=== PATIENT | female | born 1940 | race Asian ===

== ENCOUNTER 2016-10-10 17:06 | Emergency (ER) | payer MEDICARE, OTHER ==
[~2016-10-10] VITALS: Ht 157.5 cm; Wt 50.0 kg
[2016-10-10 17:14] VITALS: Ht 157.5 cm; Wt 50.0 kg
[2016-10-10] MEDS ORDERED: ACETAMINOPHEN 500 MG TAB PO STA (21:08)
[2016-10-10] MEDS ORDERED: SOD CHLORIDE 0.9% 500 ML IV STA (21:08)
--- NOTE | 2016-10-10 21:42 | RADRPT ---
PROCEDURE: CT Brain without contrast. CLINICAL INDICATION: Syncope. TECHNIQUE: A CT of the brain was performed on a high-resolution CT scanner utilizing a low dose te chnique with axial imaging from the skull base through the vertex without IV contrast. Multiplanar reformatted images were made. Images were reviewed on a PACS workstation. The CTDIvol is 45 mGy an d the DLP is 720 mGycm. One or more of the following dose reduction techniques were used: - Automated exposure control. - Adjustment of the mA and/or kV according to patient size. Use of iterative reconstruction technique. COMPARISON: CT scan of the brain 06/11/2007. FINDINGS: There are vascular calcifications in the cavernous and supracavernous portions of the internal carot id arteries. There is encephalomalacia of the dorsal right frontal lobe and left temporal lobe. The re is a metal clip adjacent to the anterior clinoid process from prior aneurysm clipping. There are old lacunar infarcts involving the left extreme capsule and dorsal lateral aspect of the left lenti form nucleus. No acute intracranial hemorrhage or bleed is identified. There are chronic small ves jacklyn ischemic changes in the periventricular white matter tracts adjacent to the frontal horns of the lateral ventricles. There are calcifications in the coronary plexus. The globes and extraocular muscles are normal. A left frontal craniotomy was performed. IMPRESSION: 1. Status post left frontal craniotomy with encephalomalacia involving portions of the left frontal and temporal lobes. 2. Stable old lacunar infarcts involving the left extreme capsule and lateral aspect of the left le ntiform nucleus. 3. Status post placement of a aneurysm clip adjacent to the left anterior clinoid. 4. No acute process is identified. 5. There are vascular calcifications in the cavernous and supracavernous portions of the internal ca rotid arteries. RPTAT:AAJJ Physician Chetan Date Time Electronically viewed and signed by Physician Chetan on 10/10/2016 21:42 PANDA/
[2016-10-10] MEDS ORDERED: HYDR12.58 PO (22:15)
[2016-10-10] MEDS ORDERED: VENL75TA PO (22:16)
[2016-10-10] MEDS ORDERED: LORA0.5T PO (22:17)
[2016-10-10] MEDS ORDERED: ATOR10TA65 PO (22:18)
[2016-10-10] MEDS ORDERED: ARIP5TAB7 PO (22:18)
[2016-10-10] MEDS ORDERED: VALS80TA2 PO (22:18)
[2016-10-10] MEDS ORDERED: AMLO5TAB4 PO (22:19)
[2016-10-10 22:20] LABS: ADD SCAN DIFF NO
--- NOTE | 2016-10-10 22:20 | RADRPT ---
PROCEDURE: Portable chest x-ray. CLINICAL INDICATION: Syncope. TECHNIQUE: Portable AP view of the chest. COMPARISON: 06/11/2007. FINDINGS: No pulmonary edema or conolidation is identified. The cardiac silhouette is magnified. There are ao rtic calcifications. No pleural effusion is seen. There is no pneumothorax. IMPRESSION: 1. No evidence of acute cardiopulmonary disease. 2. Aortic atherosclerosis. RPTAT: HTAR .Dong Chan MD, MD Date Time Electronically viewed and signed by .Dong Chan MD, on 10/10/2016 22:20 .R/
[2016-10-10 22:21] LABS: BASOPHILS % 0.5 % (0.0-2.0); EOSINOPHILS # 0.1 10^3/ul (0.0-0.5); EOSINOPHILS % 3.1 % (0.0-7.0); HEMATOCRIT 36.8 % (37.0-47.0); HEMOGLOBIN 12.1 g/dl (12.0-16.0); LYMPHOCYTES # 1.4 10^3/ul (0.8-2.9); LYMPHOCYTES % 34.4 % (15.0-51.0); MEAN CORPUSCULAR HEMOGLOBIN 29.9 pg (29.0-33.0); MEAN CORPUSCULAR HGB CONC 32.9 g/dl (32.0-37.0); MEAN CORPUSCULAR VOLUME 90.9 fl (82.0-101.0); MEAN PLATELET VOLUME 9.3 fl (7.4-10.4); MONOCYTE # 0.6 10^3/ul (0.3-0.9); NEUTROPHILS % 46.8 % (39.0-77.0); PLATELET COUNT 194 10^3/UL (140-415); RED BLOOD COUNT 4.05 10^6/ul (4.20-5.40); RED CELL DISTRIBUTION WIDTH 12.6 % (11.5-14.5); WHITE BLOOD COUNT 4.2 10^3/ul (4.8-10.8)
[2016-10-10 22:32] LABS: INR 0.94; PROTIME 12.6 Sec (12.2-14.2)
[2016-10-10 22:33] LABS: PARTIAL THROMBOPLASTIN TIME 26.7 Sec (25.0-35.0)
[2016-10-10 22:34] LABS: ANION GAP 10 (8-16); BLOOD UREA NITROGEN 22 mg/dl (7-20); CALCIUM 9.1 mg/dl (8.4-10.2); CARBON DIOXIDE 31 mmol/L (21-31); CHLORIDE 98 mmol/L (97-110); CREATININE 0.83 mg/dl (0.44-1.00); GLUCOSE 113 mg/dl (70-220); POTASSIUM 3.7 mmol/L (3.5-5.1); SODIUM 135 mmol/L (135-144)
[2016-10-10 22:42] VITALS: BP 114/77; PULSE 71; RESP 20; TEMP 98.1
--- NOTE | 2016-10-10 22:44 | ERD ---
ER Documentation Chief Complaint Date/Time DATE: 10/10/16 TIME: 22:37 Chief Complaint Per daughter patient fell, there is a bump on her but patient is unaware HPI 76-year-old female history of mild dementia, prior history of odonnell aneurysm hemorrhage status post craniotomy and depression. The patient presents because of left occipital hematoma. It appears that the patient lives at home, she took a sleep aid medication and woke up in her bed but noted to have a hematoma to the left occipital region. She is not sure how this happened. She did note that her shoes were not in the place where they usually are. The family reports no recent falls, no recent syncopal episodes. The patient denies any neck pain, no chest pain or shortness of breath. The patient is at her usual mental status per family. No anticoagulants reported. ROS All systems reviewed and are negative except as per history of present illness. Medications Home Meds Reported Medications Amlodipine Besylate* (Norvasc*) 5 Mg Tablet, 5 MG PO DAILY, TAB 10/10/16 Valsartan* (Diovan*) 80 Mg Tablet, 80 MG PO DAILY, TAB 10/10/16 Atorvastatin Calcium (Atorvastatin Calcium) 10 Mg Tablet, 10 MG PO QHS, #30 TAB 10/10/16 Aripiprazole* (Abilify*) 5 Mg Tab, 5 MG PO QHS, #30 TAB 10/10/16 Lorazepam* (Lorazepam*) 0.5 Mg Tablet, 0.25 MG PO HS for ANXIETY, TAB 10/10/16 Venlafaxine Hcl* (Venlafaxine Hcl*) 75 Mg Tablet, 75 MG PO QAM, TAB 10/10/16 Hydrochlorothiazide* (Hydrochlorothiazide*) 12.5 Mg Tablet, 12.5 MG PO QAM, #30 TAB 10/10/16 Allergies Allergies: Coded Allergies: No Known Allergy (Verified , 10/10/16) FmHx Family History: No diabetes Physical Exam Vitals Vital Signs Date Time Temp Pulse Resp B/P Pulse Ox O2 Delivery O2 Flow Rate FiO2 10/10/16 22:42 98.1 71 20 114/77 99 Room Air 10/10/16 17:14 98.3 104 20 103/64 97 Physical Exam General: Well developed, well nourished, no acute distress Head: Prior left-sided craniotomy, left occipital hematoma that is approximately 1 cm without abrasion or laceration Eyes: Pupils equally reactive, EOM intact ENT: Moist mucous membranes Neck: Supple, no lymphadenopathy, No midline tenderness, deformities, step-offs to the cervical spine, full active and passive range of motion without midline pain. Respiratory: Lungs clear bilaterally, no distress Cardiovascular: RRR, no murmurs, rubs, or gallops Abdominal: Soft, non-tender, non-distended, no peritoneal signs : Deferred MSK: No edema, no unilateral swelling, 5/5 strength Neurologic: Alert and oriented, moving all extremities, normal speech, no focal weakness, no cerebellar signs Skin: No rash Psych: Normal mood Result Diagram: 10/10/16214810/10/162148 Results 24 hrs Laboratory Tests Test 10/10/16 21:49 White Blood Count 4.210^3/ul Red Blood Count 4.0510^6/ul Hemoglobin 12.1g/dl Hematocrit 36.8% Mean Corpuscular Volume 90.9fl Mean Corpuscular Hemoglobin 29.9pg Mean Corpuscular Hemoglobin Concent 32.9g/dl Red Cell Distribution Width 12.6% Platelet Count 26091^3/UL Mean Platelet Volume 9.3fl Neutrophils % 46.8% Lymphocytes % 34.4% Monocytes % 15.0% Eosinophils % 3.1% Basophils % 0.5% Nucleated Red Blood Cells % 0.0/100WBC Neutrophils # 2.010^3/ul Lymphocytes # 1.410^3/ul Monocytes # 0.610^3/ul Eosinophils # 0.110^3/ul Basophils # 0.010^3/ul Nucleated Red Blood Cells # 0.010^3/ul Prothrombin Time 12.6Sec Prothrombin Time Ratio 1.0 INR International Normalized Ratio 0.94 Activated Partial Thromboplast Time 26.7Sec Sodium Level 135mmol/L Potassium Level 3.7mmol/L Chloride Level 98mmol/L Carbon Dioxide Level 31mmol/L Anion Gap 10 Blood Urea Nitrogen 22mg/dl Creatinine 0.83mg/dl Glucose Level 113mg/dl Calcium Level 9.1mg/dl Troponin I < 0.012ng/ml Current Medications Medications (Trade) Dose Ordered Sig/Jannette Route PRN Reason Start Time Stop Time Status Last Admin Dose Admin Sodium Chloride (NS) 500 ml @ 500 mls/hr Q1H STAT IV 10/10/16 21:08 10/10/16 22:07 DC 10/10/16 21:58 Acetaminophen (Tylenol Tab) 1,000 mg ONCE STAT PO 10/10/16 21:08 10/10/16 21:10 DC 10/10/16 21:55 Procedures/MDM EKG, MONITORS, & DIAGNOSTIC IMAGING: EKG: I reviewed and interpreted a 12-lead EKG. Rhythm: Normal sinus rhythm Ectopy: None Intervals: No abnormalities ST segments: No elevations or depressions T waves: No contiguous inversions CT brain: IMPRESSION: 1. Status post left frontal craniotomy with encephalomalacia involving portions of the left frontal and temporal lobes. 2. Stable old lacunar infarcts involving the left extreme capsule and lateral aspect of the left lentiform nucleus. 3. Status post placement of a aneurysm clip adjacent to the left anterior clinoid. 4. No acute process is identified. 5. There are vascular calcifications in the cavernous and supracavernous portions of the internal carotid arteries. RPTAT:AAJJ Chest x-ray: I reviewed and interpreted a 1 view of the chest Mediastinum: No enlargement Cardiac silhouette: No cardiomegaly Airspace: Clear lung gray bilaterally without evidence of pneumothorax Bones: No evidence of fracture LAB INTERPRETATION: No leukocytosis, negative troponin MEDICAL DECISION MAKING: The patient's presentation is consistent with occipital hematoma likely secondary to fall secondary to use of sleep aid overnight. However cannot rule out syncope. This appears to be less likely given that the patient woke up in her bed and is otherwise well-appearing. I have a very low suspicion of alternative etiology such as arrhythmia, ACS or infection. However, given the patient's age it would be reasonable for basic blood work, EKG. The patient does not meet high-risk criteria and based on NEXUS cervical spine criteria there is no indication for cervical spine imaging at this time. ER COURSE: CT brain is unchanged. The patient has no headache and no sudden onset of headache to suggest subarachnoid hemorrhage. Laboratory testing and diagnostic imaging is otherwise negative. Patient given Tylenol. She is safe for discharge home. I kept the patient and/or family informed of laboratory and diagnostic imaging results throughout the emergency room course. DISPOSITION PLAN: We discussed follow up with the patient's primary care doctor within 24 to 48 hours as needed. We also discussed return to the emergency room for worsening symptoms or worsening condition. Outpatient referral: [None required] Discharge Medications: Tylenol Departure Diagnosis: Primary Impression: Hematoma of occipital surface of head Encounter type: initial encounter Qualified Code: S00.83XA - Hematoma of occipital surface of head, initial encounter Condition: Stable JUANCHO ZALDIVAR MD October 10, 2016 22:44
[2016-10-10 22:48] LABS: TROPONIN-I < 0.012 ng/ml (0.00-0.12)
== END 2016-10-10 23:24 | disposition home or self-care (01) ==
LOC: E/R 17:06
DX: S00.83XA Contusion of other part of head, initial encounter (principal); R55 Syncope and collapse; W18.00XA Striking against unspecified object with subsequent fall, initial encounter; Y92.9 Unspecified place or not applicable
CPT/HCPCS: 36415; 70450; 71010; 80048; 84484; 85025; 85610; 85730; 93005; 99285; J7040

== ENCOUNTER 2016-11-29 06:59 | Day surgery (SDC) | payer MEDICARE, OTHER ==
--- NOTE | 2016-11-28 13:02 | PREOPHP ---
DATE OF ADMISSION: 11/29/2016 HISTORY OF PRESENT ILLNESS: This 76-year-old patient is admitted for elective cataract surgery of t he right eye. The patient has had decreased vision in both eyes for a number of years, which has be en progressive in nature. 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 The patient also has a history of systemic hypertension, depression and anxiety. CURRENT MEDICATIONS INCLUDE: 1. BuSpar 2. Lipitor. 3. Omeprazole. 4. Hydrochlorothiazide. 5. Diovan. 6. Abilify. ALLERGIES: THERE ARE NO KNOWN ALLERGIES. PHYSICAL EXAMINATION: Visual acuity best corrected is 20/100 in the right eye and 20/70 in the left eye. Slit lamp examination reveals advanced nuclear sclerotic cataract present in both eyes with v acuolar changes. Applanation tonometry is 15 mmHg. Examination of the retina is within normal limi ts. DIAGNOSIS: Cataract, right eye. PLAN: Cataract extraction with lens implant, right eye. The risks and alternatives to the surgery have been discussed with the patient and the patient has opted to proceed with surgery. Dictated By: SHANTELL LUO/KENYETTA Conf#: [id number] DID#: [id number]
[~2016-11-29] VITALS: Ht 157.5 cm; Wt 49.4 kg
[2016-11-29] VITALS (7 sets, daily range): BP systolic 98–125; BP diastolic 69–85; PULSE 66–106; RESP 18–25; Ht 157.5 cm; Wt 49.4 kg
[~2016-11-29 06:59] MED LIST: AMLO5TAB4 PO; ARIP5TAB7 PO; ATOR10TA65 PO; HYDR12.58 PO; LORA0.5T PO; VALS80TA2 PO; VENL75TA PO
[2016-11-29] MEDS ORDERED: CYCLOPENTOLATE/PHENYLEPH 2 ML OPH OPER SCH (07:00)
[2016-11-29] MEDS ORDERED: DICLOFENAC 0.1% 2.5 ML OPH OPER SCH (07:00)
[2016-11-29] MEDS ORDERED: CIPROFLOXACIN 0.3% 2.5 ML OPH OPER SCH (07:00)
[2016-11-29] MEDS ORDERED: TROPICAMIDE 1% 2 ML OPH OPER SCH (07:00)
[2016-11-29] MEDS ORDERED: NITR-58 PO (07:52)
[2016-11-29] MEDS ORDERED: ARIP10TA13 PO (07:54)
[2016-11-29] MEDS ORDERED: EPINEPHrine 1 MG INJ ONE (09:08)
[2016-11-29] MEDS ORDERED: LIDOCAINE 4% (MPF) 5 ML INJ ONE (09:08)
[2016-11-29] MEDS ORDERED: CARBACHOL 0.01% 1.5 ML OPH INJ ONE (09:08)
[2016-11-29] MEDS ORDERED: CEFAZOLIN 1 GM INJ ONE (09:08)
[2016-11-29] MEDS ORDERED: DEXAMETHASONE 4 MG/ML 1 ML INJ ONE (09:08)
[2016-11-29] MEDS ORDERED: HYALURONATE/CHONDROITIN 1ML OPH INJ ONE (09:09)
[2016-11-29] MEDS ORDERED: GENTAMICIN 80 MG INJ ONE (09:09)
[2016-11-29] MEDS ORDERED: HYALURONATE/CHONDROITIN 1ML OPH INJ IO ONE (09:18)
[2016-11-29] MEDS ORDERED: CARBACHOL 0.01% 1.5 ML OPH INJ IO ONE (09:18)
[2016-11-29] MEDS ORDERED: CEFAZOLIN 1 GM INJ INJ ONE (09:18)
[2016-11-29] MEDS ORDERED: DEXAMETHASONE 4 MG/ML 1 ML INJ INJ ONE (09:18)
[2016-11-29] MEDS ORDERED: MEPERIDINE 25 MG INJ IV PRN (09:30)
[2016-11-29] MEDS ORDERED: MIDAZOLAM 1 MG/ML 2 ML INJ IV PRN (09:30)
[2016-11-29] MEDS ORDERED: OXYCODONE/ACETAMINOPHEN (5/325) TAB PO PRN ×2 (09:30)
[2016-11-29] MEDS ORDERED: METOCLOPRAMIDE 10 MG INJ IV PRN (09:30)
[2016-11-29] MEDS ORDERED: ONDANSETRON 4 MG INJ IV PRN (09:30)
[2016-11-29] MEDS ORDERED: FENTAnyl 50 MCG/ML VIAL IV PRN ×2 (09:30)
[2016-11-29] MEDS ORDERED: DIPHENHYDRAMINE 50 MG INJ IV PRN (09:30)
[2016-11-29] MEDS ORDERED: PROPOFOL 20 ML ONE (09:53)
--- NOTE | 2016-11-29 11:20 | OPR ---
DATE OF OPERATION: 11/29/2016 PREOPERATIVE DIAGNOSIS: Cataract, right eye. POSTOPERATIVE DIAGNOSIS: Cataract, right eye. OPERATION PERFORMED: Cataract extraction with lens implant, right eye. SURGEON: Shantell Goff MD ANESTHESIA: Dr. Loaiza OPERATION: Phacoemulsification with posterior chamber intraocular lens implant, right eye. PROCEDURE: The patient was brought to the operating room and placed on the table with an IV in plac e and the patient attached to an electroplating sales representative. Oxygen was given via face mask. After some intravenous sedation was administered, local anesthesia was given using Xylocaine 2% with epinephrine, mixed with Marcaine 0.5%. This was given in a lid block and retrobulbar injection. The patient was then prepped and draped in the usual sterile manner. A wire lid speculum was inserted between the lids of the right eye. A Superblade was used to enter t he anterior chamber at the corneoscleral limbus at the 10:30 o'clock position. A separate incision w as made using a 3.0-mm keratome which entered the corneoscleral junction at the 12 o'clock position. Through this 3-mm opening, an irrigating cystotome was introduced into the anterior chamber. The ch moisés was filled with Viscoat and an anterior capsulotomy was performed. Balanced salt solution was then used for hydrodissection of the lens. A phacoemulsification handpiece was then brought into th e field and introduced into the anterior chamber. The lens nucleus was emulsified using a deep groov e and cracking the nucleus into quadrants. Following this, each quadrant was aspirated and emulsifie d at the pupillary margin. After this was completed, the irrigation/aspiration handpiece was brought to the field, introduced i nto the posterior chamber, and the lens cortical material was removed. When this was completed, samreen tional Viscoat was injected into the anterior and posterior chambers. The 3-mm opening had its internal lips enlarged, and then the posterior chamber intraocular lens [place] suring 23.5 diopters ([employer]ch [employer] AppVault [id number]) was then injected into the posterior chamb er using the lens injector system. After the leading haptic was introduced into the capsular bag and the lens optic was present in the center of the eye, the injector was removed and the trailing hapt ic was grasped with non-toothed forceps and introduced into the capsular fold superiorly. A Sinskey hook was then used to rotate the intraocular lens so that the lips were oriented in the horizontal m eridian. One 10-0 nylon suture was placed across the wound. Prior to tying, the irrigation/aspiration handpiece was reintroduced into the anterior chamber to re move the Viscoat. Miochol was instilled to constrict the pupil, and then the 10-0 nylon suture was t ied. The ends were cut short and then the knot was buried. Then, 0.5 mL of dexamethasone and 0.5 mL of Ancef were injected into the sub-Tenon space in the infe rior fornix. Ciloxan drops were then placed on the surface of the eye. The speculum was removed and a patch was applied. The patient then left the operating room in satisfactory condition. Dictated By: SHANTELL LUO/KENYETTA Conf#: [id number] DID#: [id number]
== END 2016-11-29 15:00 | disposition home or self-care (01) ==
LOC: SDS 06:59
PROVIDERS: ATTEND Ophthalmology
DX: H25.11 Age-related nuclear cataract, right eye (principal); E11.9 Type 2 diabetes mellitus without complications; E78.5 Hyperlipidemia, unspecified; I10 Essential (primary) hypertension; F20.9 Schizophrenia, unspecified
CPT/HCPCS: 66984; J0171; J0690; J1100; J1580; V2632